=== PATIENT | female | born 1990 | race Caucasian/White ===

== ENCOUNTER 2020-05-28 15:17 | Inpatient (IN) | payer OTHER ==
[~2020-05-28] VITALS: Ht 162.6 cm; Wt 54.4 kg
[~2020-05-28 15:17] MED LIST: ALBU90OI INH; CRUTCH2 USE; DIPATR PO; DIPH50; DOXY100 PO; LORA1 PO; OXYACE5T PO; PROM25 PO; QUET25; RXLORA1 PO; SERT100; SULTRISS PO; TRAM50 PO
[2020-05-28 16:11] LABS: Alanine Aminotransfer (ALT/SGP 32 U/L (12-78); Albumin, Blood 3.7 g/dL (3.4-5.0); Alk Phos 62 U/L (50-136); Anion Gap 5 mmol/L (6-16); Aspartate Aminotrans (AST/SGOT 38 U/L (12-37); Bilirubin, Total 0.5 mg/dL (0.1-1.0); Blood Urea Nitrogen 16 mg/dL (8-24); Bun/Creatinine Ratio 25.6 (12.0-20.0); CO2, Blood 25 mmol/L (21-32); Calcium, Blood 8.9 mg/dL (8.5-10.1); Chloride, Blood 108 mmol/L (98-108); Creatinine, Blood 0.63 mg/dL (0.40-1.00); Ethanol (Alcohol), Blood, Med <3 mg/dL; Globulin, Blood 3.6 g/dL (2.2-4.0); Glomerular Filtration Rate >60 (60-); Glucose, Blood 104 mg/dL (70-99); Potassium, Blood 4.4 mmol/L (3.5-5.5); Sodium, Blood 138 mmol/L (136-145); Total Protein, Blood 7.3 g/dL (6.4-8.2)
[2020-05-28 16:49] LABS: BASOPHILS ABSOLUTE AUTO 0.07 K/mm3 (0.00-0.23); BASOPHILS PERCENT AUTO 0 % (0-2); EOSINOPHILS ABSOLUTE AUTO 0.03 K/mm3 (0.00-0.68); EOSINOPHILS PERCENT AUTO 0 % (0-6); Hematocrit 34.4 % (33.0-51.0); Hemoglobin 11.4 g/dL (11.5-16.0); IMMATURE GRAN PERCENT AUTO 0 % (0-1); LYMPHOCYTES ABSOLUTE AUTO 1.46 K/mm3 (0.84-5.20); LYMPHOCYTES PERCENT AUTO 6 % (21-46); MONOCYTES ABSOLUTE AUTO 1.21 K/mm3 (0.16-1.47); MONOCYTES PERCENT AUTO 5 % (4-13); Mean Corpuscular HGB Conc 33.1 g/dL (31.5-36.5); Mean Corpuscular Volume 88 fL (80-100); NEUTROPHILS ABSOLUTE AUTO 19.77 K/mm3 (1.96-9.15); NEUTROPHILS PERCENT AUTO 88 % (41-73); Platelet Count 226 K/mm3 (150-400); RDW Coefficient Variation 11.9 % (11.7-14.2); RDW Standard Deviation 38.5 fL (35.1-46.3); Red Blood Cell Count 3.93 M/mm3 (3.80-5.20); White Blood Cell Count 22.64 K/mm3 (4.00-11.30)
[2020-05-28 18:08] LABS: International Normalized Ratio 1.02; Prothrombin Time Results 10.9 Sec (9.7-11.5)
--- NOTE | 2020-05-28 19:00 | NUR ---
PT ARRIVED TO SURGICAL FLOOR AWAKE, AND ORIENTED. SHE REQUESTS TO BE LEFT ALONE AT THIS TIME. WARM BLANKETS PROVIDED, CALL LIGHT GIVEN AND ITS USE INSTRUCTED. RLE ELEVATED ON PILLOWS. VSS.
[2020-05-28 19:14] LABS: Source, Urine Clean Catch
[2020-05-28 19:18] LABS: Bilirubin, Urine Neg (Neg); Blood, Urine 5+ (Neg); Glucose Qualitative, Urine Neg (Neg); Ketones, Urine Neg (Neg); Leukocyte Esterase, Urine Neg (Neg); Nitrite, Urine Neg (Neg); Protein, Urine Neg (Neg); Specific Gravity, Urine 1.015 (1.003-1.022); Urobilinogen, Urine NORM (Normal)
[2020-05-28 19:29] LABS: Appearance, Urine Clear (Clear); Color, Urine Yellow (P-Yellow)
[2020-05-28 19:31] LABS: White Blood Cells, Urine 0-2 /hpf (0-5)
[2020-05-28 19:32] LABS: Amorphous Mod (0-Heavy); Bacteria Rare /hpf; Squamous Epithelial Cells Few /hpf (Few)
[2020-05-28 19:45] LABS: U Amphetamine Screen DETECTED; U Methamphetamine Screen DETECTED
[2020-05-28 19:47] LABS: U Barbituate Screen Not Detected; U Benzodiazapine Screen Not Detected; U Buprenorphine Screen Not Detected; U Cannabinoids Screen Not Detected; U Cocaine Screen Not Detected; U Methadone Screen Not Detected; U Opiates Screen DETECTED; U Oxycodone Screen Not Detected; U Phencyclidine Screen Not Detected; U Propoxyphene Screen Not Detected
--- NOTE | 2020-05-29 06:32 | NUR ---
SHIFT SUMMARY: SUSAN AROUSES EASILY AND RESPONDS APPROPRIATELY. VSS, NO ACUTE EVENTS OVERNIGHT. SHE HAS RESTED QUIETLY WITH HER EYES CLOSED BETWEEN DOSES OF FENTANYL. SHE REPORTS MINIMAL PAIN CONTROL WITH THE FENTANYL. CONTINUOUS BIOX IN PLACE, ORA. SPLINT IN PLACE TO RLE. GAUZE TO LLE. SHE USES HER CALL LIGHT APPROPRIATELY. SHE IS LYING IN BED WITH HER CALL LIGHT IN REACH. WILL REPORT TO DAY SHIFT RN.
--- NOTE | 2020-05-29 08:15 | NUR ---
DR LOWRY HERE TO SEE PT.
--- NOTE | 2020-05-29 12:04 | NUR ---
LAB RECENTLY CALLED WITH POSITIVE COVID TEST. DISCUSSED WITH TECHNOLOGY ASSISTANT C.W. AND Celia. DR LOWRY NOTIFIED, REPORTS THAT OR CALLED HIM ALREADY.
--- NOTE | 2020-05-29 13:04 | NUR ---
PT OUT OF ROOM FOR PROCEDURE WITH MASK AND HAIRNET IN PLACE ON PT'S BED WITH OTHER OR/DAYSURGERY STAFF.
--- NOTE | 2020-05-29 13:31 | NUR ---
DR DENNIS REPORTS AWARE OF PT HAVING POSITIVE COVID TEST. REPORTS SEEING PT EARLIER TODAY.
--- NOTE | 2020-05-29 16:10 | NUR ---
SHIFT SUMMARY PT WAS NPO PRIOR TO PROCEDURE. PT WAS ASSISTED WITH ADL'S PRN. PT BEEN MED PRN FOR PAIN. PT CONT TO BE OUT OF ROOM FOR PROCEDURE.
--- NOTE | 2020-05-29 16:16 | NUR ---
05/29/20 1616 [place] PATIENT EXTUBATED W/ONLY THIS RN AND DR. LIM IN ROOM. AFTER 15 MIN HAD PAST SRAVANTHI DOCTOR OF [facility] CAME IN TO CARE FOR PATIENT. WILL RECOVER IN OR 4 THEN GO TO FLOOR.
--- NOTE | 2020-05-29 16:42 | NUR ---
PT HERE FROM HAVING PROCEDURE. PT HAS HENRY WRAP TO L FOOT AND RLE. PT SLEEPY. CAP REFILL BRISK. RLE ELEVATED ON BLANKETS. CALL LIGHT IN REACH. PT RESTING QUIETLY CONT BIOX IN PLACE.
--- NOTE | 2020-05-30 07:24 | NUR ---
SHIFT SUMMARY: PT POD#1 FOR ORIF TO RLE. A&O X4. FEBRILE THIS SHIFT WITH HIGHEST TEMP BEING 100.1. ALL OTHER VS WNL. O2 STABLE ON RA. PULSE OX AT BEDSIDE. LUNGS CLEAR THOUGHOUT. PT ENCOURAGED TO USE INCENTIVE SPIROMETER AND EDUCATED ON USE. SPLINT+HENRY WRAP C/D/I. PT REPORTS N/T TO TOES SINCE SURGERY. TOES PINK AND WARM WITH CAP REFILL WNL. PT ABLE TO WIGGLE TOES WHEN ASKED. EXTREMITY ELEVATED ON PILLOW WITH ICE PACK IN PLACE. PT PAINFUL THROUGHOUT SHIFT. BEING MEDICATED WITH 2 PERCOCET Q4 PER EMAR. PT GIVEN 50MCG OF FENTANYL ONCE THIS MORNING. OCC NAUSEA WITH INCREASE IN PAIN. PT EATING THIS SHIFT BUT NOT TAKING IN A LOT OF FLUIDS. IVF INFUSING PER ORDERS. ABX COMPLETE.
--- NOTE | 2020-05-30 08:13 | NUR ---
DECREASED SENSATION RLE PT REPORTS DECREASED SENSATION TO HER RLE, SHE REPORTS THIS IS UNCHANGED SINCE SURGERY. CAP REFILL IS WNL AND PT IS ABLE TO WIGGLE HER TOES. UNABLE TO PALPATE PULSES R/T SPLINT PLACEMENT. PT HAS MILD SWELLING AT HER KNEE ABOVE THE SPLINT.
--- NOTE | 2020-05-30 11:04 | NUR ---
PT DECLINED TO WORK WITH PHYSICAL THERAPY THIS MORNING R/T PAIN THAT PT RATED AT 9/10. PT WAS RESTING IN HER BED WHEN NURSING STAFF ENTERED THE ROOM. SHE APPEARED TO BE RESTING COMFORTABLY WITH EYES CLOSED. NO GRIMACING. PT IS DROWSY BUT WAS GIVEN PERCOCET AND TORADOL TO HELP MANAGE HER PAIN. PHYSICAL THERAPY WAS ASKED TO ATTEMPT TO SEE HER AROUND 1100 WHEN PAIN MEDICATION SHOULD BE WORKING. PT WAS EDUCATED TO USE HER INCENTIVE SPIROMETER TO DECREASE RISK OF DEVELOPING PNEUMONIA. WILL CONTINUE TO MONITOR AND ENCOURAGE PT TO MOBILIZE WITH PHYSICAL THERAPY.
[2020-05-30] MEDS ORDERED: Percocet 5-3251 EACH PO (15:08)
--- NOTE | 2020-05-30 18:08 | NUR ---
SHIFT SUMMARY PT IS POD#1 FOR RLE ORIF. PAIN HAS BEEN MANAGED WITH PERCOCET AND TORADOL THIS SHIFT. PT WAS UNABLE TO CLEAR THERAPY THIS MORNING, SHE WILL HAVE THERAPY AGAIN TOMORROW THEN SHOULD BE ABLE TO DISCHARGE. [facility] IS MAKING ARRAGEMENTS FOR PT TO STAY IN A HOTEL AFTER SHE IS DISCHARGED. CARE MANAGEMENT IS ASSISTING WITH MEDICAL EQUIPMENT. PT HAS A FAMILY MEMBER FROM [employer] PRESENT FOR SUPPORT. VSS. WILL MONITOR UNTIL REPORT TO ONCOMING RN.
--- NOTE | 2020-05-31 04:38 | NUR ---
SHIFT SUMMARY POD 2 ORIF R TIB/FIB [id number], VSS. PT REQUESTED TO SLEEP DURING SHIFT AND ONLY WANTED ME TO BRING HER PAIN MEDS. COOPERATIVE OF CARE AND PLEASANT DURING SHIFT. PAIN WELL MANAGED WITH TORODOL PER PT. DENIES N/T IN EXTREMETIES, LEG ELEVATED T/O NIGHT. DENIES SOB DURING SHIFT. SATS REMAIN ABOVE 94% ON RA. PLAN IS TO DISCHARGE TODAY AWATING EQUIPMENT AND LOCATION TO STAY.
--- NOTE | 2020-05-31 12:21 | NUR ---
PT CLEARED PHYSICAL THERAPY BUT HOME HEALTH WAS RECOMMENDED. CARI AT [facility] WAS NOTIFIED SO A MOTEL CAN BE ARRANGED FOR PT TO QUARANTINE WHEN DISCHARGED. ABILIO STANLEY FROM CARE MANAGEMENT NOTIFIED THAT PT CLEARED THERAPY AND THAT HOME HEALTH WAS RECOMMENDED. WILL CONTINUE TO MONITOR.
[2020-05-31] MEDS ORDERED: ASPI325EC PO (14:34)
--- NOTE | 2020-05-31 14:57 | NUR ---
DISCHARGE PT WAS PROVIDED WITH WRITTEN AND VERBAL DISCHARGE INSTRUCTIONS, SHE REPORTED UNDERSTANDING. PT WAS PROVIDED WITH A MASK AND ASSISTED TO GET DRESSED. SHE TRANSFERRED INDEPENDENTLY WITH THE WALKER INTO THE WHEELCHAIR AND MAINTIANED NWB STATUS. PT WAS PROVIDED WITH WRITTEN PRESCRIPTION FOR PERCOCET. PT WAS ALSO EDUCATED TO TAKE ASPIRIN PRESCRIBED A BLOOD THINNER. [facility] WAS NOTIFIED THAT PT DISCHARGED. SHE WAS NOTIFIED THAT SHE WOULD REQUIRE ASSISTANCE OBTAINING PRESCRITIONS (PERCOCET AND ASPIRIN), SHE WAS ALSO NOTIFIED THAT PT WOULD BENEFIT FROM [facility] AND [facility]. PT'S PAIN HAS BEEN MANAGED WHILE IN THE HOSPITAL AND WAS MANAGED AT TIME OF DISCHARGE. PT LEFT IN W/C WITH [facility].
== END 2020-05-31 14:49 | disposition home or self-care (01) | DRG 492 ==
LOC: ER 15:17 → SURS 18:02
PROVIDERS: Emergency Medicine; Orthopaedic Surgery; ADMIT Surgery
PROC: 8E0ZXY6 Isolation (ICD-10-PCS; 2020-05-28)
PROC: 0QSG04Z Reposition Right Tibia with Internal Fixation Device, Open Approach (ICD-10-PCS; 2020-05-29)
PROC: 0QSJ06Z Reposition Right Fibula with Intramedullary Internal Fixation Device, Open Approach (ICD-10-PCS; principal; 2020-05-29 12:30)
DX: S82.831A Other fracture of upper and lower end of right fibula, initial encounter for closed fracture (principal); U07.1 COVID-19; F11.20 Opioid dependence, uncomplicated; S82.301A Unspecified fracture of lower end of right tibia, initial encounter for closed fracture; F32.9 Major depressive disorder, single episode, unspecified; J45.909 Unspecified asthma, uncomplicated; S09.90XA Unspecified injury of head, initial encounter; S91.312A Laceration without foreign body, left foot, initial encounter; F15.10 Other stimulant abuse, uncomplicated; V83.6XXA Passenger of special industrial vehicle injured in nontraffic accident, initial encounter; F17.210 Nicotine dependence, cigarettes, uncomplicated
CPT/HCPCS: 12004; 27825; 29505; 70450; 71260; 72125; 73560-RT; 73562-LT; 73600; 73610; 74177; 80053; 81001; 84703; 85025; 85610; 85730; 86850; 86900; 86901; 90471; 90714; 94762; 96365-59; 97116; 97161; 97166; 97530; 97535; 99152; 99285-25; A9270; C1713; G0480; J0690; J1100; J1885; J2405; J2704; J2795; J3010; J7120; L0160; Q9967; U0003

== ENCOUNTER 2020-07-12 12:38 | Emergency (ER) | payer OTHER ==
[~2020-07-12] VITALS: Ht 167.6 cm; Wt 63.5 kg
[~2020-07-12 12:38] MED LIST changes: +ASPI325EC PO; +Percocet 5-3251 EACH PO
[2020-07-12 13:12] LABS: BASOPHILS ABSOLUTE AUTO 0.08 K/mm3 (0.00-0.23); BASOPHILS PERCENT AUTO 1 % (0-2); EOSINOPHILS PERCENT AUTO 1 % (0-6); Hemoglobin 11.8 g/dL (11.5-16.0); IMMATURE GRAN ABSOLUTE AUTO 0.07 K/mm3 (0.00-0.10); IMMATURE GRAN PERCENT AUTO 1 % (0-1); LYMPHOCYTES PERCENT AUTO 17 % (21-46); MONOCYTES ABSOLUTE AUTO 1.13 K/mm3 (0.16-1.47); MONOCYTES PERCENT AUTO 8 % (4-13); Mean Corpuscular HGB 29.6 pg (26.0-34.0); Mean Corpuscular HGB Conc 32.8 g/dL (31.5-36.5); Mean Corpuscular Volume 91 fL (80-100); NEUTROPHILS ABSOLUTE AUTO 10.45 K/mm3 (1.96-9.15); NEUTROPHILS PERCENT AUTO 73 % (41-73); Platelet Count 319 K/mm3 (150-400); RDW Coefficient Variation 12.4 % (11.7-14.2); RDW Standard Deviation 40.7 fL (35.1-46.3); Red Blood Cell Count 3.98 M/mm3 (3.80-5.20); White Blood Cell Count 14.33 K/mm3 (4.00-11.30)
[2020-07-12 13:32] LABS: Alanine Aminotransfer (ALT/SGP 15 U/L (12-78); Albumin, Blood 3.5 g/dL (3.4-5.0); Albumin/Globulin Ratio 0.8 (0.8-1.8); Alk Phos 99 U/L (50-136); Anion Gap 5 mmol/L (6-16); Aspartate Aminotrans (AST/SGOT 14 U/L (12-37); Bilirubin, Total 0.7 mg/dL (0.1-1.0); Blood Urea Nitrogen 12 mg/dL (8-24); Bun/Creatinine Ratio 17.6 (12.0-20.0); CO2, Blood 32 mmol/L (21-32); Calcium, Blood 9.2 mg/dL (8.5-10.1); Chloride, Blood 103 mmol/L (98-108); Creatinine, Blood 0.68 mg/dL (0.40-1.00); Globulin, Blood 4.6 g/dL (2.2-4.0); Glomerular Filtration Rate >60 (60-); Glucose, Blood 90 mg/dL (70-99); Potassium, Blood 3.7 mmol/L (3.5-5.5); Sodium, Blood 140 mmol/L (136-145); Total Protein, Blood 8.1 g/dL (6.4-8.2)
[2020-07-12] MEDS ORDERED: Bactrim Ds Tab1 EACH PO (14:36)
[2020-07-12] MEDS ORDERED: CEPH500 PO (14:36)
== END 2020-07-12 14:58 | disposition home or self-care (01) ==
LOC: ER 12:38
PROVIDERS: Emergency Medicine
DX: S91.312D Laceration without foreign body, left foot, subsequent encounter (principal); S82.401D Unspecified fracture of shaft of right fibula, subsequent encounter for closed fracture with routine healing; S82.201D Unspecified fracture of shaft of right tibia, subsequent encounter for closed fracture with routine healing; F17.200 Nicotine dependence, unspecified, uncomplicated; L08.9 Local infection of the skin and subcutaneous tissue, unspecified; J45.909 Unspecified asthma, uncomplicated; F32.9 Major depressive disorder, single episode, unspecified; X58.XXXD Exposure to other specified factors, subsequent encounter
CPT/HCPCS: 36415; 80053; 85025; 99283; A9270-GY